=== PATIENT | male | born 1960 | race Caucasian/White ===

== ENCOUNTER 2021-01-17 07:31 | Day surgery (SDC) | payer OTHER ==
[~2021-01-17] VITALS: Ht 165.1 cm; Wt 81.6 kg
[2021-01-17] MEDS ORDERED: fentaNYL citrate 0.05 MG/ML VIAL ONE (08:51)
[2021-01-17] MEDS ORDERED: MIDAZOLAM 5 MG/5 ML VIAL ONE (08:51)
[2021-01-17] MEDS ORDERED: diphenhydrAMINE 50 MG/ML VIAL ONE (08:51)
[2021-01-17] MEDS ORDERED: MIDAZOLAM 2 MG/2 ML VIAL IVP ONE (09:15)
[2021-01-17] MEDS ORDERED: fentaNYL citrate 0.05 MG/ML VIAL IVP ONE (09:15)
== END 2021-01-17 09:30 | disposition home or self-care (01) ==
LOC: MDS 07:31 → MMU 07:31 → MDS 09:30
PROVIDERS: ATTEND Internal Medicine Gastroenterology
DX: R13.10 Dysphagia, unspecified (principal); K21.00 Gastro-esophageal reflux disease with esophagitis, without bleeding; E11.9 Type 2 diabetes mellitus without complications; E78.5 Hyperlipidemia, unspecified; E03.9 Hypothyroidism, unspecified; Z79.899 Other long term (current) drug therapy
CPT/HCPCS: 43239; J2250; J3010; J1200